=== PATIENT | male | born 1985 | race African-American/Black ===

== ENCOUNTER 2019-11-24 11:24 | Emergency (ER) | payer BC, OTHER ==
[~2019-11-24] VITALS: Ht 175.3 cm; Wt 103.4 kg
[2019-11-24 11:36] VITALS: Ht 175.3 cm; Wt 103.4 kg
[2019-11-24 13:22] VITALS: BP 148/90
== END 2019-11-24 13:22 | disposition home or self-care (01) ==
LOC: ED 11:24
DX: Z02.79 Encounter for issue of other medical certificate (principal)